=== PATIENT | female | born 1970 | race Caucasian/White ===

== ENCOUNTER 2024-08-22 13:21 | Emergency (ER) | payer MEDICAID ==
[~2024-08-22] VITALS: Ht 162.6 cm; Wt 65.9 kg
[2024-08-22 13:26] VITALS: BP 152/97; PULSE 93; RESP 16; TEMP 98; O2SAT 96
[2024-08-22] MEDS ORDERED: HYDR-3965 PO (15:07)
== END 2024-08-22 15:45 | disposition home or self-care (01) ==
LOC: ER 13:22
DX: S82.832A Other fracture of upper and lower end of left fibula, initial encounter for closed fracture (principal); X50.1XXA Overexertion from prolonged static or awkward postures, initial encounter; Y93.89 Activity, other specified; Y92.89 Other specified places as the place of occurrence of the external cause; Y99.8 Other external cause status
CPT/HCPCS: 29505; 73610; 99283; L4360; A6258; A6446; A6449

== ENCOUNTER 2024-12-14 17:46 | Emergency (ER) | payer MEDICAID ==
[~2024-12-14] VITALS: Ht 162.6 cm; Wt 68.4 kg
[2024-12-14 17:52] VITALS: BP 162/97; PULSE 115; RESP 16; TEMP 98.3; O2SAT 98
[2024-12-14] MEDS: dexamethasone sod phosphate 10mg/ml inj PO STA (19:30)
[2024-12-14] MEDS ORDERED: AMOX500C2 PO (19:30)
--- NOTE | 2024-12-14 19:30 | Physician Documentation ---
History of Present Illness ~ Chief Complaint: Ear Pain Stated Complaint: FLU SYMPTOMS Time Seen by MD: 18:32 Primary Medical Doctor: anthony baker [facility] 53-year-old female presents to the ED with a complaint of acute onset left ear pain and eye drainage. She states she was sick about a week ago and developed increased ear pain in the last three days. Denies any fevers however but states she continues to have a cough. Denies any history of diabetes or COPD Day of Onset: Dec 14, 2024 Medication Reconciliation Allergies: Coded Allergies: No Known Allergies (Unverified , 08/22/24) Scheduled Amoxicillin Trihydrate* (Amoxicillin*), 1 CAP PO Q8H Review of Systems All Other Systems at this time: Reviewed and Negative ROS As stated above in the HPI, otherwise all systems are reviewed and negative. Physical Exam Vital Signs: Temperature: 98.3, Source: Oral, Heart Rate: 115, Respiratory Rate: 16, BP: 162/97, Pulse Oximetry: 98, Weight: 68.400 Oxygen Flow Rate: 0 Physical Exam General: Alert, no apparent distress. HEENT: PERRL, EOMI, no injection, moist mucous membranes. Left external auditory canal and tympanic membrane are both inflamed tympanic membrane is intact, no evidence of drainage Neck: Full range of motion. Respiratory: Lungs clear, no respiratory distress. Psychiatric: Normal mood and affect. Skin: Normal color, warm and dry. No edema, no ecchymosis. Progress Results/Orders Results/Orders Completed Orders - JUNAID CALVILLO [employer] Amoxicillin Capsule (Trimox Capsule) (12/14/24 19:25) Dexamethasone Inj (Decadron 10mg/Ml Inj) (12/14/24 19:24) Medications Received in ER Medications (Trade) Dose Ordered Sig/Marii Route PRN Reason Start Time Stop Time Status Last Admin Dose Admin (Trimox capsule) 500 mg ONCE ONCE PO 12/14/24 19:25 12/14/24 19:26 DC 12/14/24 19:32 500 MG (Decadron 10mg/ ml inj) 10 mg ONCE STAT PO 12/14/24 19:24 12/14/24 19:25 DC 12/14/24 19:30 10 MG Vital Signs 12/14/24 17:52 Temp 98.3 Pulse 115 Resp 16 B/P (MAP) 162/97 Pulse Ox 98 O2 Flow Rate 0 Medical Decision Making Findings Treating for otitis media empirically based on my physical exam.. Departure Disposition: HOME / SELF CARE / HOMELESS Impression: Primary Impression: Otitis media Discharge Instructions: Otitis Media, Adult Referrals: NO PRIMARY CARE PROVIDER (PCP) Prescriptions Amoxicillin Trihydrate* (Amoxicillin*) 500 Mg Capsule 1 CAP PO Q8H for 10 Days, #30 CAP Prov: JUNAID CALVILLO [employer]ESS 12/14/24 Education Educated: Patient Educated regarding: diagnosis Signature Scribe Signature: f Attestation: Scribed for Junaid Calvillo Marketing Admin by Junaid Calvillo - SRAVANI . 12/14/24 19:30 JUNAID CALVILLO NP Dec 14, 2024 19:30
== END 2024-12-14 19:42 | disposition home or self-care (01) ==
LOC: ER 17:47
DX: H66.92 Otitis media, unspecified, left ear (principal)
CPT/HCPCS: 99283; J1100